=== PATIENT | male | born 1995 | race Two or more races ===

== ENCOUNTER 2023-12-25 08:21 | Emergency (ER) | payer MEDICAID, SELFPAY ==
--- NOTE | 2023-12-25 08:36 | PD.EDRECHK ---
ED Recheck Abnl Lab Rx-RME/HPI General Chief Complaint: Recheck/Abnormal Lab/Rx Stated Complaint: RX REFILL Time Seen by Provider: 12/25/23 08:27 Source: patient Arrival date/time: 12/25/23 08:21 This is a 28-year-old male who presents to the emergency department and request for a refill of medication. States he recently transferred over from [facility] to a longterm here and his prescriptions were not able to be refilled any local pharmacy requesting a new prescription. Patient states he takes fluoxetine 40 mg every afternoon and trazodone for insomnia. Patient is in transition for new physician and unable to get a prescription at this time no other concerns. Mode of arrival: ambulatory Limitations: no limitations Related Data Previous Rx's ?Medication ?Instructions ?Recorded fluoxetine 40 mg capsule 40 mg PO QPM #30 caps 12/25/23 trazodone 50 mg tablet 50 mg PO .Qhs PRN insomnia #30 tabs 12/25/23 Allergies Allergy/AdvReac Type Severity Reaction Status Date / Time No Known Allergies Allergy Verified 12/25/23 08:25 Review of Systems Review of Systems Systems Reviewed: All systems reviewed, normal except as documented Narrative Review of Systems: Gen: No fever, no chills, no weight loss EYES: No discharge, no visual changes, no pain HEENT: No ear pain, no congestion, no sore throat PULM: No shortness of breath, no cough, no congestion CV: No chest pain, no dyspnea on exertion, no palpitations GI: No nausea, no vomiting, no diarrhea, no pain, no constipation : No frequency, no urgency,? no dysuria Musc/skel: No joint pain, no back pain Skin: No rash? Psyc: No hallucinations, no depression Heme/Lymph: No easy bleeding or bruising tendencies Neuro: No weakness, no headache ED Exam General Limitations: Present no limitations General appearance: Present alert and in no apparent distress Head Head exam: Present atraumatic Eye Eye exam: Present normal appearance, PERRL and EOMI ENT ENT exam: Present normal exam, normal oropharynx and mucous membranes moist Neck Neck exam: Present normal inspection, full ROM and trachea midline Chest Chest inspection: Present normal inspection and symmetric chest wall rise Respiratory Respiratory exam: Present normal lung sounds bilaterally Cardiovascular Cardiovascular exam: Present regular rate, normal rhythm and normal heart sounds Abdominal Exam Abdominal exam: Present soft and normal bowel sounds Extremities Exam Extremities exam: Present normal inspection and full ROM Back Exam Back exam: Present normal inspection and full ROM Neurological Exam Neurological exam: Present alert, oriented X3 and CN II-XII intact Psychiatric Psychiatric exam: Present normal affect and normal mood Skin Skin exam: Present warm, dry, intact and normal color Course Quality Measures none Vital Signs Vital signs: Vital Signs Temperature 98.3 F 12/25/23 08:47 Pulse Rate 75 12/25/23 08:47 Respiratory Rate 18 12/25/23 08:47 Blood Pressure 100/66 12/25/23 08:47 Pulse Oximetry (%) 99 12/25/23 08:47 Oxygen Delivery Method Room Air 12/25/23 08:47 Recheck / Abnormal Lab / Rx MDM Narrative MDM Narrative:: Courtesy refill for 30 days on medications. Patient data External records reviewed:: [facility] previous records Clinical information provided by:: patient Social determinants that could affect healthcare access:: none Patient has the following chronic illnesses:: no How is presenting disease/condition affected by chronic disease/condition?: no chronic disease Evaluation data The following diagnostics were reviewed and interpreted by me:: other (specify) Lab and/or radiology exams considered but not ordered:: no Interpretation Summary: no Medications / Prescriptions Medications or Prescriptions considered but not ordered:: no Medication administrations:: no Consultations Consultation(s) initiated? (list below): No Diagnosis Recheck Differential Diagnosis: encounter for medication refill Most likely diagnosis given after review of the tests above:: Encounter for medication refill Admission Indicated Admission indicated?: not indicated Admission Request Was there a request for admission?: No Disposition Plan Disposition Plan: Discharge Discharge Attestation Discharge Attestation: The patient and all family members were given an opportunity to ask questions and understood the discharge instructions. Discharge instructions specifically effects, indications for sooner follow up or return to the emergency department, and the expected course of current diagnosis. Patient condition: Stable Discharge Plan Plan Patient Disposition: HOME (Self Care) Patient condition on transfer: Stable Prescriptions/Referrals Prescriptions/Med Rec: New fluoxetine 40 mg capsule 40 mg PO QPM Qty: 30 0RF trazodone 50 mg tablet 50 mg PO .Qhs PRN (Reason: insomnia) Qty: 30 0RF Problem List Clinical Impression: Encounter for medication refill Patient/Caregiver Discharge Instructions Discharge Activity: activity as tolerated Additional Instructions: Courtesy Refills sent to pharmacy for 30 days Follow-up with your primary doctor Print Language: Slovak Stand Alone Forms: Ju Award Info., Patient Portal Info Letter PA/HOTEL OPERATIONS MANAGER Supervising Physician PA/HOTEL OPERATIONS MANAGER Supervising Physician: Dr. Romero
[2023-12-25 08:47] VITALS: BP 100/66; PULSE 75; RESP 18; TEMP 36.8; O2SAT 99; BMI 24.4
== END 2023-12-25 09:13 | disposition home or self-care (01) ==
LOC: SERX 09:18
PROVIDERS: Emergency Provider Emergency Medicine
DX: Z76.0 Encounter for issue of repeat prescription (principal); G47.00 Insomnia, unspecified
CPT/HCPCS: 99281

== ENCOUNTER 2024-01-22 08:13 | Emergency (ER) | payer MEDICAID, SELFPAY ==
--- NOTE | 2024-01-22 08:17 | EDNOTE_ITS ---
ED General RME/HPI General Chief complaint: Recheck/Abnormal Lab/Rx Stated complaint: NEEDS RX REFILL Time Seen by Provider: 01/22/24 08:14 Arrival date/time: 01/22/24 08:13 28-year-old male presents to the emergency department and request for a refill of medication. States he recently transferred over from [facility] to a [facility] here and his prescriptions were not able to be refilled any local pharmacy requesting a new prescription. Patient states he takes fluoxetine 40 mg every afternoon and trazodone for insomnia. Patient is in transition for new physician and unable to get a prescription at this time no other concerns. Per manager plumbing reports that he is supposed to have insurance by the first of the month Limitations: no limitations Related Data Previous Rx's ?Medication ?Instructions ?Recorded fluoxetine 40 mg capsule 40 mg PO QPM #30 caps 12/25/23 trazodone 50 mg tablet 50 mg PO .Qhs PRN insomnia #30 tabs 12/25/23 fluoxetine 20 mg capsule 40 mg (2 x 20 mg) PO .qhs 30 days 01/22/24 #60 caps trazodone 50 mg tablet 50 mg PO .qhs 30 days #30 tabs 01/22/24 Allergies Allergy/AdvReac Type Severity Reaction Status Date / Time No Known Allergies Allergy Verified 12/25/23 08:25 Review of Systems Review of Systems Systems Reviewed: All systems reviewed, normal except as documented Constitutional Constitutional: Reports system reviewed and no additional complaints, except as documented, Denies fever(s) and Denies headache(s) Eyes Eyes: Reports system reviewed and no additional complaints, except as documented and Denies blurry vision ENT Ears, Nose, Mouth, and Throat: Reports system reviewed and no additional complaints, except as documented, Denies headache(s), Denies nasal congestion and Denies nasal discharge Cardiovascular Cardiovascular: Reports system reviewed and no additional complaints, except as documented, Denies chest pain and Denies dyspnea Respiratory Respiratory: Reports system reviewed and no additional complaints, except as documented, Denies chest congestion, Denies cough and Denies dyspnea Gastrointestinal Gastrointestinal: Reports system reviewed and no additional complaints, except as documented and Denies abdominal pain Integumentary/Breasts Skin/Breast: Reports system reviewed and no additional complaints, except as documented and Denies rash Neurologic Neurologic: Reports system reviewed and no additional complaints, except as documented, Reports as per HPI and Denies headache(s) Past Medical History Past Medical History NEUROLOGIC: Negative Neurological Disorders CARDIAC: Negative Cardiac Disorders ED Exam General Limitations: Present no limitations General appearance: Present alert and in no apparent distress Head Head exam: Present atraumatic Eye Eye exam: Present normal appearance, PERRL and EOMI ENT ENT exam: Present normal exam, normal oropharynx and mucous membranes moist Neck Neck exam: Present normal inspection, full ROM and trachea midline Chest Chest inspection: Present normal inspection and symmetric chest wall rise Respiratory Respiratory exam: Present normal lung sounds bilaterally Cardiovascular Cardiovascular exam: Present regular rate, normal rhythm and normal heart sounds Abdominal Exam Abdominal exam: Present soft and normal bowel sounds Extremities Exam Extremities exam: Present normal inspection and full ROM Back Exam Back exam: Present normal inspection and full ROM Neurological Exam Neurological exam: Present alert, oriented X3 and CN II-XII intact Psychiatric Psychiatric exam: Present normal affect and normal mood; Absent depressed, agitated, anxious, flat affect, manic, homicidal ideation or suicidal ideation Skin Skin exam: Present warm, dry, intact and normal color Course Quality Measures none Vital Signs Vital signs: Vital Signs Temperature 98.3 F 01/22/24 08:22 Pulse Rate 62 01/22/24 08:22 Respiratory Rate 18 01/22/24 08:22 Blood Pressure 130/80 01/22/24 08:22 Pulse Oximetry (%) 99 01/22/24 08:22 Oxygen Delivery Method Room Air 01/22/24 08:22 O2 saturation 99% room air within normal limits MDM Patient data External records reviewed:: [facility] previous records Clinical information provided by:: patient Social determinants that could affect healthcare access:: none Patient has the following chronic illnesses:: See history How is presenting disease/condition affected by chronic disease/condition?: caused by Evaluation data The following diagnostics were reviewed and interpreted by me:: other (specify) (N/A) Lab and/or radiology exams considered but not ordered:: Consider not ordered Interpretation Summary: N/A Medications Medications considered but not ordered:: Given Medication administrations:: Given Consultations Consultation(s) initiated? (list below): No Diagnosis Differential Diagnosis ED Complaint MDM: Anxiety, depression, medication refill Most likely diagnosis given after review of the tests above:: Med refill Admission Indicated Admission indicated?: not indicated Explain why admission is indicated or not indicated:: No criteria Admission Request Was there a request for admission?: No Disposition Plan Disposition Plan: Discharge Discharge Attestation Discharge Attestation: The patient and all family members were given an opportunity to ask questions and understood the discharge instructions. Discharge instructions specifically effects, indications for sooner follow up or return to the emergency department, and the expected course of current diagnosis. Patient condition: Stable Medical Decision Making MDM Narrative MDM Narrative: 28-year-old male presents to the emergency department and request for a refill o f medication. States he recently transferred over from [facility] to a [facility] here and his prescriptions were not able to be refilled any local pharmacy requesting a new prescription. Patient states he takes fluoxetine 40 mg every afternoon and trazodone for insomnia. Patient is in transition for new physician and unable to get a prescription at this time no other concerns. Per manager plumbing reports that he is supposed to have insurance by the first of the month On exam patient well-appearing patient not ill or toxic Patient's medications refilled Patient is no acute psychiatric emergency Patient discharged home in no distress to follow-up with primary care doctor in the next 24 to 48 hours and for any worsening symptoms to return to the ER immediately Differential Diagnosis Differential Diagnosis: Anxiety, depression, medication refill Medical Records Medical records reviewed: Yes I reviewed the patient's medical records. Discharge Plan Plan Patient Disposition: HOME (Self Care) Disposition Comment: stable Prescriptions/Referrals Prescriptions/Med Rec: New fluoxetine 20 mg capsule 40 mg PO .qhs 30 Days Qty: 60 0RF trazodone 50 mg tablet 50 mg PO .qhs 30 Days Qty: 30 0RF No Action fluoxetine 40 mg capsule 40 mg PO QPM Qty: 30 0RF trazodone 50 mg tablet 50 mg PO .Qhs PRN (Reason: insomnia) Qty: 30 0RF Problem List Clinical Impression: Encounter for medication refill Patient/Caregiver Discharge Instructions Additional Instructions: Please follow up with your primary care doctor in the next 24-48hrs for any worsening symptoms return here immediately Print Language: Icelandic Stand Alone Forms: Ju Award Info., Patient Portal Info Letter PA/CLIENT ACCOUNT ASSISTANT Supervising Physician PA/CLIENT ACCOUNT ASSISTANT Supervising Physician: Dr. Cade
[2024-01-22 08:22] VITALS: BP 130/80; PULSE 62; RESP 18; TEMP 36.8; O2SAT 99; BMI 24.6
== END 2024-01-22 08:46 | disposition home or self-care (01) ==
LOC: SERX 08:32
PROVIDERS: Emergency Provider Emergency Medicine
DX: Z76.0 Encounter for issue of repeat prescription (principal); G47.00 Insomnia, unspecified
CPT/HCPCS: 99281

== ENCOUNTER 2024-02-23 10:19 | Emergency (ER) | payer MEDICAID, SELFPAY ==
[2024-02-23 10:40] VITALS: BP 94/68; PULSE 71; RESP 20; TEMP 37; O2SAT 98; BMI 28.2
--- NOTE | 2024-02-23 11:05 | EDNOTE_ITS ---
ED General RME/HPI General Chief complaint: Recheck/Abnormal Lab/Rx Stated complaint: RX FILLED Time Seen by Provider: 02/23/24 10:23 Arrival date/time: 02/23/24 10:19 28-year-old male presents to the emergency department and request for a refill of medication. States he recently transferred over from [facility] to a long term here and his prescriptions were not able to be refilled any local pharmacy requesting a new prescription. Patient states he takes fluoxetine 40 mg every afternoon and trazodone for insomnia. Patient is in transition for new physician and unable to get a prescription at this time no other concerns. Per last model department supervisor reports that he is supposed to have insurance by the first of the month, patient is still waiting insurance coverage Limitations: no limitations Related Data Previous Rx's ?Medication ?Instructions ?Recorded fluoxetine 40 mg capsule 40 mg PO QPM #30 caps 12/25/23 trazodone 50 mg tablet 50 mg PO .Qhs PRN insomnia #30 tabs 12/25/23 fluoxetine 20 mg capsule 40 mg (2 x 20 mg) PO .qhs 30 days 02/23/24 #60 caps trazodone 50 mg tablet 50 mg PO .qhs 30 days #30 tabs 02/23/24 Allergies Allergy/AdvReac Type Severity Reaction Status Date / Time No Known Allergies Allergy Verified 02/23/24 10:21 Review of Systems Review of Systems Systems Reviewed: All systems reviewed, normal except as documented Constitutional Constitutional: Reports system reviewed and no additional complaints, except as documented, Denies fever(s) and Denies headache(s) Eyes Eyes: Reports system reviewed and no additional complaints, except as documented and Denies blurry vision ENT Ears, Nose, Mouth, and Throat: Reports system reviewed and no additional complaints, except as documented, Denies headache(s), Denies nasal congestion and Denies nasal discharge Cardiovascular Cardiovascular: Reports system reviewed and no additional complaints, except as documented, Denies chest pain and Denies dyspnea Respiratory Respiratory: Reports system reviewed and no additional complaints, except as documented, Denies chest congestion, Denies cough and Denies dyspnea Gastrointestinal Gastrointestinal: Reports system reviewed and no additional complaints, except as documented and Denies abdominal pain Integumentary/Breasts Skin/Breast: Reports system reviewed and no additional complaints, except as documented and Denies rash Neurologic Neurologic: Reports system reviewed and no additional complaints, except as documented, Reports as per HPI and Denies headache(s) Past Medical History Past Medical History NEUROLOGIC: Negative Neurological Disorders CARDIAC: Negative Cardiac Disorders or Congestive Heart Failure RESPIRATORY: Negative Chronic Obstructive Pulmonary Disease (COPD) GENITOURINARY: Negative Renal Disease ENDOCRINE: Negative Diabetes Mellitus Type 1 or Diabetes Mellitus Type 2 Social History SMOKING STATUS: Never smoker ED Exam General Limitations: Present no limitations General appearance: Present alert and in no apparent distress Head Head exam: Present atraumatic and normocephalic Eye Eye exam: Present normal appearance, PERRL and EOMI; Absent conjunctival injection ENT ENT exam: Present normal exam, normal oropharynx and mucous membranes moist Neck Neck exam: Present normal inspection, full ROM and trachea midline Chest Chest inspection: Present normal inspection and symmetric chest wall rise Respiratory Respiratory exam: Present normal lung sounds bilaterally; Absent respiratory distress Cardiovascular Cardiovascular exam: Present regular rate, normal rhythm and normal heart sounds Abdominal Exam Abdominal exam: Present soft and normal bowel sounds; Absent distention, tenderness, guarding, rebound or rigidity Extremities Exam Extremities exam: Present normal inspection and full ROM Back Exam Back exam: Present normal inspection and full ROM Neurological Exam Neurological exam: Present alert, oriented X3, CN II-XII intact, normal gait and reflexes normal; Absent motor sensory deficit Psychiatric Psychiatric exam: Present normal affect and normal mood Skin Skin exam: Present warm, dry, intact and normal color; Absent rash Course Quality Measures none Vital Signs Vital signs: Vital Signs Temperature 98.6 F 02/23/24 10:40 Pulse Rate 71 02/23/24 10:40 Respiratory Rate 20 02/23/24 10:40 Blood Pressure 94/68 02/23/24 10:40 Pulse Oximetry (%) 98 02/23/24 10:40 Oxygen Delivery Method Room Air 02/23/24 10:40 O2 saturation 98% room air within normal limits MDM Patient data External records reviewed:: [facility] previous records Clinical information provided by:: patient Social determinants that could affect healthcare access:: none Patient has the following chronic illnesses:: See history How is presenting disease/condition affected by chronic disease/condition?: caused by Evaluation data The following diagnostics were reviewed and interpreted by me:: other (specify) (N/A) Lab and/or radiology exams considered but not ordered:: Consider not ordered Interpretation Summary: N/A Medications Medications considered but not ordered:: Given Medication administrations:: Given Consultations Consultation(s) initiated? (list below): No Diagnosis Differential Diagnosis ED Complaint MDM: Anxiety, depression, bipolar Most likely diagnosis given after review of the tests above:: Psychiatric disorder Admission Indicated Admission indicated?: not indicated Explain why admission is indicated or not indicated:: No criteria Admission Request Was there a request for admission?: No Disposition Plan Disposition Plan: Discharge Discharge Attestation Discharge Attestation: The patient and all family members were given an opportunity to ask questions and understood the discharge instructions. Discharge instructions specifically effects, indications for sooner follow up or return to the emergency department, and the expected course of current diagnosis. Patient condition: Stable Medical Decision Making MDM Narrative MDM Narrative: 28-year-old male presents to the emergency department and request for a refill of medication. States he recently transferred over from [facility] to a long term here and his prescriptions were not able to be refilled any local pharmacy requesting a new prescription. Patient states he takes fluoxetine 40 mg every afternoon and trazodone for insomnia. Patient is in transition for new physician and unable to get a prescription at this time no other concerns. Per last model department supervisor reports that he is supposed to have insurance by the first of the month, patient is still waiting insurance coverage On exam patient well-appearing patient not ill or toxic Patient's medications refilled Patient is no acute psychiatric emergency Patient discharged home in no distress to follow-up with primary care doctor in the next 24 to 48 hours and for any worsening symptoms to return to the ER immediately Differential Diagnosis Differential Diagnosis: Anxiety, depression, bipolar Medical Records Medical records reviewed: Yes I reviewed the patient's medical records. Discharge Plan Plan Patient Disposition: HOME (Self Care) Disposition Comment: Stable Prescriptions/Referrals Prescriptions/Med Rec: New fluoxetine 20 mg capsule 40 mg PO .qhs 30 Days Qty: 60 0RF trazodone 50 mg tablet 50 mg PO .qhs 30 Days Qty: 30 0RF No Action fluoxetine 40 mg capsule 40 mg PO QPM Qty: 30 0RF trazodone 50 mg tablet 50 mg PO .Qhs PRN (Reason: insomnia) Qty: 30 0RF Problem List Clinical Impression: Encounter for medication refill Patient/Caregiver Discharge Instructions Additional Instructions: Please follow up with your primary care doctor in the next 24-48hrs for any worsening symptoms return here immediately Print Language: Persian Stand Alone Forms: Ju Award Info., Patient Portal Info Letter ELINOR/BOOM TENDER Supervising Physician PA/BOOM TENDER Supervising Physician: dr melvin
== END 2024-02-23 11:14 | disposition home or self-care (01) ==
LOC: SERX 11:16
PROVIDERS: Emergency Provider Emergency Medicine
DX: Z76.0 Encounter for issue of repeat prescription (principal)
CPT/HCPCS: 99281

== ENCOUNTER 2024-03-03 10:07 | Emergency (ER) | payer MEDICAID, SELFPAY ==
[2024-03-03 10:21] VITALS: BP 112/67; PULSE 73; RESP 16; TEMP 37.3; O2SAT 97; BMI 24.6
--- NOTE | 2024-03-03 10:55 | XR_ITS ---
Examination: PA lateral chest 2 views TECHNIQUE: Upright PA lateral chest 2 views Exam date and time: March 03, 2024 1108 hours INDICATIONS: Coughing beginning 3 days ago. FINDINGS: Normal heart size Lungs are clear. The osseous structures are intact IMPRESSION: No active disease
--- NOTE | 2024-03-03 11:36 | EDNOTE_ITS ---
Upper Respiratory Inf. RME/HPI General Chief Complaint: Flu Like Symptoms Stated Complaint: congestion, cough x 3 days Time Seen by Provider: 03/03/24 10:12 Arrival date/time: 03/03/24 10:07 28-year-old male presents emergency department today complaints of congestion and cough ongoing x 3 days. Limitations: no limitations Related Data Previous Rx's ?Medication ?Instructions ?Recorded fluoxetine 40 mg capsule 40 mg PO QPM #30 caps 12/25/23 trazodone 50 mg tablet 50 mg PO .Qhs PRN insomnia #30 tabs 12/25/23 fluoxetine 20 mg capsule 40 mg (2 x 20 mg) PO .qhs 30 days 02/23/24 #60 caps trazodone 50 mg tablet 50 mg PO .qhs 30 days #30 tabs 02/23/24 benzonatate 100 mg capsule 100 mg PO TID #14 caps 03/03/24 ibuprofen 600 mg tablet 600 mg PO Q6H #30 tabs 03/03/24 Allergies Allergy/AdvReac Type Severity Reaction Status Date / Time No Known Allergies Allergy Verified 03/03/24 10:07 Review of Systems Review of Systems Systems Reviewed: All systems reviewed, normal except as documented Constitutional Constitutional: Reports system reviewed and no additional complaints, except as documented, Denies fever(s) and Reports headache(s) Eyes Eyes: Reports system reviewed and no additional complaints, except as documented and Denies blurry vision ENT Ears, Nose, Mouth, and Throat: Reports system reviewed and no additional complaints, except as documented, Reports headache(s), Reports nasal congestion and Reports nasal discharge Cardiovascular Cardiovascular: Reports system reviewed and no additional complaints, except as documented, Denies chest pain and Denies dyspnea Respiratory Respiratory: Reports system reviewed and no additional complaints, except as documented, Denies chest congestion, Denies cough and Denies dyspnea Gastrointestinal Gastrointestinal: Reports system reviewed and no additional complaints, except as documented and Denies abdominal pain Integumentary/Breasts Skin/Breast: Reports system reviewed and no additional complaints, except as documented and Denies rash Neurologic Neurologic: Reports system reviewed and no additional complaints, except as documented, Reports as per HPI and Reports headache(s) Past Medical History Past Medical History NEUROLOGIC: Negative Neurological Disorders CARDIAC: Negative Cardiac Disorders or Congestive Heart Failure RESPIRATORY: Negative Chronic Obstructive Pulmonary Disease (COPD) GENITOURINARY: Negative Renal Disease ENDOCRINE: Negative Diabetes Mellitus Type 1 or Diabetes Mellitus Type 2 Social History SMOKING STATUS: Never smoker ED Exam General Limitations: Present no limitations General appearance: Present alert and in no apparent distress Head Head exam: Present atraumatic, normocephalic and normal inspection Eye Eye exam: Present normal appearance, PERRL and EOMI; Absent conjunctival injection ENT ENT exam: Present normal exam, normal oropharynx and mucous membranes moist Neck Neck exam: Present normal inspection, full ROM and trachea midline Chest Chest inspection: Present normal inspection and symmetric chest wall rise Respiratory Respiratory exam: Present normal lung sounds bilaterally; Absent respiratory distress Cardiovascular Cardiovascular exam: Present regular rate, normal rhythm and normal heart sounds Abdominal Exam Abdominal exam: Present soft and normal bowel sounds; Absent distention, tenderness, guarding, rebound or rigidity Extremities Exam Extremities exam: Present normal inspection and full ROM Back Exam Back exam: Present normal inspection and full ROM Neurological Exam Neurological exam: Present alert, oriented X3, CN II-XII intact, normal gait and reflexes normal; Absent motor sensory deficit Psychiatric Psychiatric exam: Present normal affect and normal mood Skin Skin exam: Present warm, dry, intact and normal color; Absent rash Course Quality Measures none Orders Category Date Time Status Bedside Influenza A&B Antigen Test NOW Care 03/03/24 10:27 Completed XR chest 2V Stat Exams 03/03/24 10:55 Completed Vital Signs Vital signs: Vital Signs Temperature 99.2 F 03/03/24 10:21 Pulse Rate 73 03/03/24 10:21 Respiratory Rate 16 03/03/24 10:21 Blood Pressure 112/67 03/03/24 10:21 Pulse Oximetry (%) 97 03/03/24 10:21 Oxygen Delivery Method Room Air 03/03/24 10:21 O2 saturation 97% room air within limits Upper Respiratory Infection MDM Narrative MDM Narrative:: 28-year-old male presents emergency department today complaints of congestion and cough ongoing x 3 days. On exam patient well-appearing patient does not appear ill or toxic and in no acute distress Patient checked for flu and a chest x-ray obtained both of which are unremarkable Symptoms consistent with URI Patient given medicine for cough as well as ibuprofen Patient discharged home in no distress to follow-up with primary care doctor in the next 24 to 48 hours and for any worsening symptoms to return to the ER immediately Patient data External records reviewed:: [facility] previous records Clinical information provided by:: patient Social determinants that could affect healthcare access:: none Patient has the following chronic illnesses:: None How is presenting disease/condition affected by chronic disease/condition?: no chronic disease Evaluation data The following diagnostics were reviewed and interpreted by me:: lab results and radiology exam(s) Lab and/or radiology exams considered but not ordered:: Labs radiology obtain Interpretation Summary: Reviewed by me Medications / Prescriptions Medications or Prescriptions considered but not ordered:: Given Medication administrations:: Given Consultations Consultation(s) initiated? (list below): No Diagnosis Upper Respiratory Differential Diagnosis: upper respiratory infection, otitis media, sinusitis, viral infection and pharyngitis Most likely diagnosis given after review of the tests above:: Viral illness Admission Indicated Admission indicated?: not indicated Admission Request Was there a request for admission?: No Disposition Plan Disposition Plan: Discharge Discharge Attestation Discharge Attestation: The patient and all family members were given an opportunity to ask questions and understood the discharge instructions. Discharge instructions specifically effects, indications for sooner follow up or return to the emergency department, and the expected course of current diagnosis. Patient condition: Stable Discharge Plan Plan Patient Disposition: HOME (Self Care) Disposition Comment: Stable Prescriptions/Referrals Prescriptions/Med Rec: New benzonatate 100 mg capsule 100 mg PO TID Qty: 14 0RF ibuprofen 600 mg tablet 600 mg PO Q6H Qty: 30 0RF No Action fluoxetine 20 mg capsule 40 mg PO .qhs 30 Days Qty: 60 0RF trazodone 50 mg tablet 50 mg PO .qhs 30 Days Qty: 30 0RF fluoxetine 40 mg capsule 40 mg PO QPM Qty: 30 0RF trazodone 50 mg tablet 50 mg PO .Qhs PRN (Reason: insomnia) Qty: 30 0RF Problem List Clinical Impression: Upper respiratory infection Patient/Caregiver Discharge Instructions Education Materials: ED URI, Viral, No Abx (Adult) Additional Instructions: Please follow up with your primary care doctor in the next 24-48hrs for any worsening symptoms return here immediately Print Language: Chinese Stand Alone Forms: Ju Award Info., Patient Portal Info Letter PA/CUSTOMER ADVOCACY MANAGER Supervising Physician PA/CUSTOMER ADVOCACY MANAGER Supervising Physician: Dr [email or web address]
== END 2024-03-03 12:49 | disposition home or self-care (01) ==
LOC: SERX 11:47
PROVIDERS: Emergency Provider Emergency Medicine
DX: J06.9 Acute upper respiratory infection, unspecified (principal)
CPT/HCPCS: 71046; 87400; 99283